=== PATIENT | female | born 1985 | race Caucasian/White ===

== ENCOUNTER 2018-08-16 16:11 | Emergency (ER) | payer OTHER ==
[2018-08-16 16:35] VITALS: BP 142/84
--- NOTE | 2018-08-16 17:07 | UC ---
Abdominal Pain Female HPI - HPI Summary HPI Summary: Per office worker "Onset yesterday morning left lower quad pain, pain now closer to left groin area. Day 1 of pt's menses was 2 days ago. Pt has hx of polycystic ovarian syndrome." -here alone -pain started yesterday AM ~ 8 AM. constant dull pain of 4-5/10 that is improved to about 3-4/10 today. -sharp pain comes ~ 1x/hr since yesterday lasting < 1 min -no hematuria or dysuria. -no personal kidnesy stone hx, + mom w/ stones -no back pain -no constipation/diarrhea -no change in BM form. -no blood or melena -on 2nd day of menses. nml flow but 1 wk late. -sexually active w/ , not on OCP. -starving and could eat her favorite food. -felt nauseated yesterday, not today. +PCOS hx - never had pain w/it just infertility. -has 4 yr old dtr. - - History of Current Complaint Chief Complaint: UCAbdominalPain Stated Complaint: LEFT SIDE ABD PAIN Time Seen by Provider: 08/16/18 17:02 Hx Last Menstrual Period: 08/14/18 Pain Intensity: 2 Allergies/Adverse Reactions: Allergies Allergy/AdvReac Type Severity Reaction Status Date / Time No Known Allergies Allergy Verified 08/16/18 16:26 Home Medications: Home Medications Fluoxetine HCl [Prozac] 20 mg PO DAILY 08/16/18 [History Confirmed 08/16/18] Multivitamin [Multivitamins] 1 cap PO DAILY 08/16/18 [History Confirmed 08/16/18 ] PMH/Surg Hx/FS Hx/Imm Hx Previously Healthy: Yes - Surgical History Surgical History: Yes Surgery Procedure, Year, and Place: D&C - Family History Known Family History: Positive: Other - mom w/ kidney stones - Social History Alcohol Use: Weekly Substance Use Type: None Smoking Status (MU): Former Smoker Type: Cigarettes Amount Used/How Often: 1/2 PPD Length of Time of Smoking/Using Tobacco: 12 yrs Have You Smoked in the Last Year: No When Did the Patient Quit Smoking/Using Tobacco: 09/2013 - Immunization History Most Recent Influenza Vaccination: June 2015 Review of Systems All Other Systems Reviewed And Are Negative: Yes Constitutional: Positive: Negative Skin: Positive: Negative Eyes: Positive: Negative ENT: Positive: Negative Respiratory: Positive: Negative Cardiovascular: Positive: Negative Gastrointestinal: Positive: Abdominal Pain Genitourinary: Positive: Negative Motor: Positive: Negative Neurovascular: Positive: Negative Musculoskeletal: Positive: Negative Neurological: Positive: Negative Psychological: Positive: Negative Is Patient Immunocompromised?: No Physical Exam Vital Signs: Initial Vital Signs Temp 98.5 F 08/16/18 16:28 Pulse 60 08/16/18 16:28 Resp 22 08/16/18 16:28 BP 142/84 08/16/18 16:28 Pulse Ox 99 08/16/18 16:28 Abd Pain Female Course/Dx - Course Course Of Treatment: UA - nml. HCG: neg. CT a/p no contrast: negative. tiny non-obstructive stones (report does not indicate where or laterality). - recommend f/u with PCP and [facility] Sunday. Go to ER if sx worsen. she understood me well and is agreeable w/ plan. - Differential Dx/Diagnosis Differential Diagnosis: Diverticulitis, Ectopic , Renal Colic, Urinary Tract Infection Provider Diagnosis: Abdominal pain Discharge - Sign-Out/Discharge Documenting (check all that apply): Patient Departure All imaging exams completed and their final reports reviewed: Yes - Discharge Plan Condition: Stable Disposition: HOME Patient Education Materials: Acute Abdominal Pain (ED) Referrals: Nevaeh Sesay PA [Primary Care Provider] - 2 Days Additional Instructions: We have given you a copy of the CT report. We reviewed that you have small kidney stones that you should be aware of, although which side they are on is not indicated in the report. -you should go to the ER with any worsening pain, fevers, chills etc. -make sure to follow up with your PCP and [facility] in 3 days. - Billing Disposition and Condition Condition: STABLE Disposition: Home
== END 2018-08-16 19:10 | disposition home or self-care (01) ==
LOC: UCCORT 16:11
DX: R10.32 Left lower quadrant pain (principal); Z87.891 Personal history of nicotine dependence
CPT/HCPCS: 74176; 81003; 84702; 99211; G0463